=== PATIENT | female | born 1950 | race African-American/Black ===

== ENCOUNTER 2016-03-16 05:46 | Day surgery (SDC) | payer MEDICARE, OTHER ==
--- NOTE | 2016-03-15 16:22 | HP ---
DATE OF ADMISSION: 03/16/2016 CHIEF COMPLAINT: The patient is being admitted on an elective basis for podiatry surgery per Dr. Teresa clark 03/16/2016. Dear Dr. Garcia: Thank you very much for asking me to evaluate Ms. Lemus from a [facility]. HISTORY OF PRESENT ILLNESS: The patient is a 66-year-old lady who presents with severe recurrent pa in left foot and conservative treatment has not relieving her symptoms and the patient is therefore being admitted for bunionectomy on the left foot. REVIEW OF SYSTEMS: HEAD: No history of headaches, focal weakness or numbness. EYES: No history of glaucoma. ENT: Noncontributory. NECK: Status post thyroidectomy. No history of CA. CHEST: Occasional cough. Smokes 5 cigarettes per day for 30+ years. Chest x-ray done on 6 was normal. CARDIOVASCULAR: No chest pain, palpitations. No history of hyperlipidemia. GASTROINTESTINAL: No constipation, diarrhea, change in bowel habits. GENITOURINARY: Status post hysterectomy. Mammogram done this year was normal. PAST SURGICAL HISTORY: Include right foot surgery, small-bowel obstruction surgery in 1999, thyroid ectomy, partial, and status post lumpectomy x2 on the left breast no cancer. History of lupus since 1988, has had prednisone therapy on and off for the last 5 years. FAMILY HISTORY: Father has hypertension. Mother has hypertension. No history of colon or breast c ancer. ALLERGIES: CODEINE. MEDICATIONS: Include: 1. Clonidine 0.1 mg p.r.n. basis. 2. Losartan 5 mg daily. 3. Atenolol 50 mg daily. 4. Omeprazole 20 mg daily. 5. Xanax 0.25 mg on a p.r.n. basis. PHYSICAL EXAMINATION: GENERAL: The patient is an average-built female, very pleasant, in no acute distress. VITAL SIGNS: Blood pressure 130/90, respiratory 20 per minute. HEENT: Head normocephalic. No pallor, cyanosis or icterus. Tongue is moist. NECK: Supple. No thyromegaly, bruits or lymphadenopathy. LUNGS: Clinically clear. HEART: S1, S2 heard. No definite gallops. Mid systolic murmur grade II/ without conduction. ABDOMEN: Soft, nontender, no hepatosplenomegaly. EXTREMITIES: No edema. Pedal pulsations poorly palpable. Homans sign is negative. NEUROLOGIC: No localizing or lateralizing signs. PELVIC/RECTAL/BREASTS: Deferred at patient's request. EKG shows normal sinus rhythm with no acute changes. Chest x-ray done on 03/08/2016 shows normal si ze heart, lung lacy clear. LABORATORY DATA: WBC count 4.8, hematocrit 37.7, platelet count of 205,000. INR 1.1, glucose 77, B UN 17, creatinine 1.12. IMPRESSION: 1. Symptomatic left bunion for bunionectomy. 2. Hypertension well compensated. 3. History of systemic lupus being followed by Dr. Gannon. The patient's overall medical condition is stable for the proposed surgery. Thank you again, Dr. Garcia for asking me to evaluate Ms. Lemus. I will be happy to follow her as needed along with you. Dictated By: SHAHANA SUERO MD SR/NTS Conf#: [id number] DID#: [id number]
[~2016-03-16] VITALS: Ht 170.2 cm; Wt 66.3 kg
[2016-03-16] VITALS (11 sets, daily range): BP systolic 142–191; BP diastolic 80–95; PULSE 60–72; RESP 14–83; Ht 170.2 cm; Wt 66.3 kg
[2016-03-16] MEDS ORDERED: AMLO2.5T78 PO (06:12)
[2016-03-16] MEDS ORDERED: ALPR0.254 PO (06:12)
[2016-03-16] MEDS ORDERED: ATEN100T PO (06:12)
[2016-03-16] MEDS ORDERED: KEN1O TOP (06:12)
[2016-03-16] MEDS ORDERED: FAMO20TA18 PO (06:12)
[2016-03-16] MEDS ORDERED: LOSA100T7 PO (06:12)
[2016-03-16] MEDS ORDERED: IBANDRONATE (06:12)
[2016-03-16] MEDS ORDERED: OMEP20CA16 PO (06:12)
[2016-03-16] MEDS ORDERED: hydrocodone (06:38)
[2016-03-16] MEDS ORDERED: LIDOCAINE 1% (MPF) 30 ML INJ ONE (06:56)
[2016-03-16] MEDS ORDERED: BUPIVACAINE 0.25% (MPF) 30 ML INJ ONE (06:56)
[2016-03-16] MEDS ORDERED: CEFAZOLIN 1 GM INJ ONE (07:00)
[2016-03-16] MEDS ORDERED: LIDOCAINE 2% (SDV) 5 ML INJ ONE (07:00)
--- NOTE | 2016-03-16 07:34 | HPN ---
Date/Time of Note Date/Time of Note DATE: 03/16/16 TIME: 07:33 Interval H&P Admission Note Pt. seen H&P reviewed: No system changes WALDO WASSERMAN Mar 16, 2016 07:33
[2016-03-16] MEDS ORDERED: FENTAnyl 50 MCG/ML VIAL ONE (07:37)
[2016-03-16] MEDS ORDERED: MIDAZOLAM 1 MG/ML 2 ML INJ ONE ×2 (07:50→08:31)
[2016-03-16] MEDS ORDERED: METOCLOPRAMIDE 10 MG INJ IV PRN (08:30)
[2016-03-16] MEDS ORDERED: MEPERIDINE 25 MG INJ IV PRN (08:30)
[2016-03-16] MEDS ORDERED: ONDANSETRON 4 MG INJ IV PRN (08:30)
[2016-03-16] MEDS ORDERED: FENTAnyl 50 MCG/ML VIAL IV PRN ×2 (08:30)
[2016-03-16] MEDS ORDERED: DEXAMETHASONE 4 MG/ML 1 ML INJ ONE (08:43)
[2016-03-16] MEDS ORDERED: hydrALAzine 20 MG INJ IV PRN (09:00)
[2016-03-16] MEDS ORDERED: LABETALOL HCL 20MG INJ IV PRN (09:00)
[2016-03-16] MEDS ORDERED: PROPOFOL 20 ML ONE (10:09)
--- NOTE | 2016-03-16 14:38 | OPR ---
DATE OF OPERATION: 03/16/2016 SURGEON: Waldo Garcia MD ANESTHESIA: Local with mask. PREOPERATIVE DIAGNOSIS: Painful bunion of the left foot. POSTOPERATIVE DIAGNOSIS: Painful bunion of the left foot. OPERATION PERFORMED: Chevron-type bunionectomy of the left foot with 3.0 screw fixation. ESTIMATED BLOOD LOSS: Less than 3 mL. DESCRIPTION OF PROCEDURE: The patient was brought into the OR and placed on the OR table in a secur e supine position. A pneumatic ankle tourniquet was placed about the left ankle. Following IV jodi tion, a total of 17 mL of 1:1 mix of 1% lidocaine and 0.25% Marcaine was administered to the left fo ot in the form of a Ceballos block. The foot was then prepped and draped in the usual sterile fashion. The foot was exsanguinated using an Esmarch bandage. The pneumatic ankle tourniquet was then infla asia to 275 mmHg pressure. A linear incision was made over the medial aspect of the left foot over the first MTP joint. The sk in incision was deepened using sharp and blunt dissection. A T-shaped capsulotomy was performed ove r the first metatarsophalangeal joint. The first metatarsal head and medial eminence was noted to b e very large and also cystic. Attention was then directed over the first inner space where a thorou gh lateral release was performed. The McGlamry scope was utilized to free all the soft tissue struc tures of the first metatarsal head, a power saw was then used to resect the medial eminence of the f irst metatarsal head. This was followed by a Chevron-type osteotomy and the distal capital fragment was shifted laterally. A 3-0 20 mm screw was used for fixation. All sharp edges were rasped clari h. At this point, it was noted that the first metatarsal head had some cystic changes, so this was packed with the bone wax. After copious lavage, the capsule was reapproximated using 3-0 Vicryl, th e subcutaneous structures were reapproximated using 4-0 Vicryl, and the skin was reapproximated usin g 0 Prolene. The range of motion at the 1st MTPJ was evaluated and noted to be normal. 1 mL of 4 m g of Decadron was injected for postoperative pain along with 9 mL of 0.25% Marcaine. Steri-Strips, Kerlix gauze, and Coban was then used for dressing. Upon deflation of the tourniquet, immediate hyp eremia was noted to digits 1 through 5 of the left foot. The patient left the OR with vital signs s table. The patient was given postoperative instructions including to only weightbear with the posto p shoe on the left foot and to keep the dressing clean, dry, and intact. The patient will be follow ed in the clinic on Sunday, March 20. Dictated By: WALDO HOROWITZ/DREA Conf#: [id number] DID#: [id number]
== END 2016-03-16 11:25 | disposition home or self-care (01) ==
LOC: SDS 05:46
PROVIDERS: ATTEND Podiatrist
DX: M21.612 Bunion of left foot (principal); I10 Essential (primary) hypertension; M32.9 Systemic lupus erythematosus, unspecified; Z82.49 Family history of ischemic heart disease and other diseases of the circulatory system
CPT/HCPCS: 28296; C1713; J0360; J0690; J1100; J2250; J3010; L3260